=== PATIENT | male | born 1990 | race Caucasian/White ===

== ENCOUNTER 2024-05-19 21:12 | Emergency (ER) | payer BC ==
[2024-05-19 21:26] VITALS: TEMP 99.4; BMI 39.2
[2024-05-19] MEDS ORDERED: LIDOCAINE VISCOUS 2% ORAL/TOP 15 ML UNIT-DOSE CUP ONE (22:55)
[2024-05-19] MEDS ORDERED: ALBUTEROL SO4 2.5/IPRATROPIUM 0.5 INH SOL 3 ML VIAL.NEB. NEB ONE (22:55)
[2024-05-19] MEDS ORDERED: ACETAMINOPHEN 325 MG TABLET (FP) ONE (22:56)
[2024-05-19] MEDS: ALBUTEROL SO4 2.5/IPRATROPIUM 0.5 INH SOL 3 ML VIAL.NEB. NEB ONE (23:08)
[2024-05-19] MEDS: LIDOCAINE VISCOUS 2% ORAL/TOP 15 ML UNIT-DOSE CUP MM ONE (23:11)
[2024-05-19] MEDS: ACETAMINOPHEN 500 MG TABLET (FP) PO ONE (23:11)
[2024-05-19] MEDS ORDERED: chlordiazePOXIDE HCL 25 MG CAPSULE ONE (23:37)
[2024-05-19] MEDS: chlordiazePOXIDE HCL 25 MG CAPSULE PO ONE (23:44)
[2024-05-19] MEDS: SODIUM CHLORIDE 0.9% 500 ML INFUS.BAG IV ONE (23:44)
[2024-05-19 23:47] LABS: HEMATOCRIT 37.6 % (35.4-49); HEMOGLOBIN 12.8 GM/dL (11.7-16.9); MCH 28.2 pg (25.7-33.7); MEAN CELL VOLUME 83.1 fl (80-96); MEAN PLT VOLUME 7.5 fl (7.5-11.1); PLATELET COUNT 241 10^3/uL (134-434); RBC 4.53 M/mm3 (4.00-5.60); RDW 14.1 % (11.9-15.9); WHITE BLOOD COUNT 6.8 K/mm3 (4.0-10.0)
[2024-05-20 01:09] LABS: POTASSIUM 4.4 mmol/L (3.5-5.1)
[2024-05-20 01:11] LABS: CALCIUM 8.5 mg/dL (8.5-10.1)
[2024-05-20 01:12] LABS: ALBUMIN 3.4 g/dl (3.4-5.0); BLOOD UREA NITROGEN 15.8 mg/dL (7-18)
[2024-05-20 01:15] LABS: CREATININE 0.7 mg/dL (0.55-1.3)
[2024-05-20 01:17] LABS: BILIRUBIN,TOTAL 1.1 mg/dL (0.2-1); TOT PROT 7.3 g/dl (6.4-8.2)
[2024-05-20 01:39] VITALS: BP 125/86; RESP 16
[2024-05-20] MEDS ORDERED: DEXAMETHASONE SOD PHOSPHATE 10 MG/1 ML VIAL ONE (02:37)
[2024-05-20] MEDS: DEXAMETHASONE SOD PHOSPHATE 10 MG/1 ML VIAL IVPUSH ONE (02:44)
[2024-05-20 02:46] VITALS: PULSE 101
== END 2024-05-20 03:09 | disposition home or self-care (01) ==
LOC: JER 21:12
PROC: 3E033GC Introduction of Other Therapeutic Substance into Peripheral Vein, Percutaneous Approach (ICD-10-PCS; principal; 2024-05-19)
PROC: 3E0F7GC Introduction of Other Therapeutic Substance into Respiratory Tract, Via Natural or Artificial Opening (ICD-10-PCS; 2024-05-19)
DX: K13.70 Unspecified lesions of oral mucosa (principal); R06.2 Wheezing; Z04.9 Encounter for examination and observation for unspecified reason; Z20.822 Contact with and (suspected) exposure to COVID-19
CPT/HCPCS: 0241U-QW; 36415; 71045-TC-FY; 80053; 85027; 93005; 93010; 99285-25; J1100

== ENCOUNTER 2024-05-20 03:13 | Inpatient (IN) | payer BC ==
[2024-05-20 03:41] VITALS: BMI 39.5
[2024-05-20] MEDS ORDERED: ALBUTEROL SO4 2.5/IPRATROPIUM 0.5 INH SOL 3 ML VIAL.NEB. NEB PRN (04:10)
[2024-05-20] MEDS ORDERED: LIDOCAINE VISCOUS 2% ORAL/TOP 100 ML BOTTLE MM PRN (04:11)
[2024-05-20] MEDS ORDERED: MAG HYDROX/AL HYDROX/SIMETH 30 ML UNIT-DOSE CUP PO PRN (04:17)
[2024-05-20] MEDS ORDERED: POLYETHYLENE GLYCOL (HEALTHYLAX) 3350 17 GM PACKET PO PRN (04:17)
[2024-05-20] MEDS ORDERED: MAGNESIUM HYDROX 2400MG/30ML ORAL SUSPENSION 30 ML CUP PO PRN (04:17)
[2024-05-20] MEDS ORDERED: ACETAMINOPHEN 325 MG TABLET (FP) PO PRN (04:17)
[2024-05-20] MEDS ORDERED: NALOXONE (NARCAN) HCL 4 MG/0.1 ML SPRAY NS PRN (04:17)
[2024-05-20] MEDS ORDERED: NALOXONE HCL 0.4 MG/ML VIAL IM PRN (04:17)
[2024-05-20] MEDS ORDERED: NICOTINE POLACRILEX 4 MG GUM BUC PRN (04:17)
[2024-05-20] MEDS ORDERED: IBUPROFEN 400 MG TABLET (FP) PO PRN (04:17)
[2024-05-20] MEDS ORDERED: LOPERAMIDE HCL 2 MG CAPSULE PO PRN (04:17)
[2024-05-20] MEDS: PRENATAL VITAMINS W/ FOLIC ACID TABLET (FP) PO SCH (10:51)
[2024-05-20] MEDS: IBUPROFEN 600 MG TABLET (FP) PO PRN (18:59)
[2024-05-20] MEDS: hydrOXYzine PAMOATE 25 MG CAPSULE (FP) PO PRN (18:59)
[2024-05-20] MEDS: MELATONIN 5 MG TABLETS PO SCH (21:14)
[2024-05-20] MEDS: THIAMINE 100 MG TABLET PO SCH (21:14)
[2024-05-21] MEDS: BENZONATATE 200 MG CAPSULE PO PRN (01:32)
[2024-05-21] MEDS: guaiFENesin 600 MG TABLET.ER (FP) PO PRN (03:55)
[2024-05-21] MEDS: BENZOCAINE/MENTHOL (CHLORASEPTIC ) LOZENGE MM PRN (03:56)
[2024-05-21 09:33] VITALS: BP 128/71; PULSE 79; RESP 18; TEMP 97.5
[2024-05-21] MEDS: diazePAM 5 MG TABLET PO ONE (11:36)
[2024-05-21] MEDS: hydrOXYzine PAMOATE 50 MG CAPSULE (FP) PO ONE (11:36)
[2024-05-21 12:07] LABS: POTASSIUM 4.2 mmol/L (3.5-5.1)
[2024-05-21 12:08] LABS: ALBUMIN 3.2 g/dl (3.4-5.0); CALCIUM 8.8 mg/dL (8.5-10.1)
[2024-05-21 12:09] LABS: BLOOD UREA NITROGEN 19.4 mg/dL (7-18)
[2024-05-21 12:12] LABS: CREATININE 0.6 mg/dL (0.55-1.3)
[2024-05-21 12:13] LABS: BILIRUBIN,TOTAL 1.1 mg/dL (0.2-1)
[2024-05-21 16:17] LABS: SYPHILIS W/ RPR CONF NON-REACTIVE (NONREACTIVE)
[2024-05-23] MEDS ORDERED: DEXAMETHASONE 4 MG TABLET (FP) PO ONE (10:00)
== END 2024-05-21 13:38 | disposition home or self-care (01) | DRG 772 ==
LOC: YASAS 03:13 → Y3NR 04:14
PROVIDERS: ADMIT Allergy & Immunology; ATTEND Allergy & Immunology
PROC: HZ42ZZZ Group Counseling for Substance Abuse Treatment, Cognitive-Behavioral (ICD-10-PCS; principal; 2024-05-20)
DX: F18.20 Inhalant dependence, uncomplicated (principal); F10.10 Alcohol abuse, uncomplicated; F14.10 Cocaine abuse, uncomplicated; F13.10 Sedative, hypnotic or anxiolytic abuse, uncomplicated; F19.24 Other psychoactive substance dependence with psychoactive substance-induced mood disorder; J45.20 Mild intermittent asthma, uncomplicated; K13.79 Other lesions of oral mucosa; Z87.891 Personal history of nicotine dependence; Z88.0 Allergy status to penicillin
CPT/HCPCS: 36415; 80053; 80305; 80307; 86780; 86803; 93005; 93010

== ENCOUNTER 2024-05-21 13:50 | Inpatient (IN) | payer BC ==
[2024-05-21] MEDS ORDERED: NALOXONE HCL 0.4 MG/ML VIAL IM PRN (14:32)
[2024-05-21] MEDS ORDERED: MAG HYDROX/AL HYDROX/SIMETH 30 ML UNIT-DOSE CUP PO PRN (14:32)
[2024-05-21] MEDS ORDERED: ACETAMINOPHEN 325 MG TABLET (FP) PO PRN (14:32)
[2024-05-21] MEDS ORDERED: guaiFENesin 600 MG TABLET.ER (FP) PO PRN (14:32)
[2024-05-21] MEDS ORDERED: LOPERAMIDE HCL 2 MG CAPSULE PO PRN (14:32)
[2024-05-21] MEDS ORDERED: DICYCLOMINE HCL 10 MG CAPSULE PO PRN (14:32)
[2024-05-21] MEDS ORDERED: POLYETHYLENE GLYCOL (HEALTHYLAX) 3350 17 GM PACKET PO PRN (14:32)
[2024-05-21] MEDS ORDERED: BISMUTH SUBSALICYLATE 262 MG/15 ML BTL PO PRN (14:32)
[2024-05-21] MEDS ORDERED: ONDANSETRON *ODT* 4 MG TABLET SL PRN (14:32)
[2024-05-21] MEDS ORDERED: IBUPROFEN 400 MG TABLET (FP) PO PRN (14:32)
[2024-05-21] MEDS ORDERED: IBUPROFEN 600 MG TABLET (FP) PO PRN (14:32)
[2024-05-21] MEDS ORDERED: NALOXONE (NARCAN) HCL 4 MG/0.1 ML SPRAY NS PRN (14:32)
[2024-05-21] MEDS ORDERED: MAGNESIUM HYDROX 2400MG/30ML ORAL SUSPENSION 30 ML CUP PO PRN (14:32)
[2024-05-21] MEDS ORDERED: BENZOCAINE/MENTHOL (CHLORASEPTIC ) LOZENGE MM PRN (14:32)
[2024-05-21] MEDS: PRENATAL VITAMINS W/ FOLIC ACID TABLET (FP) PO SCH (14:48)
[2024-05-21 17:20] LABS: EPI CELLS 6 /uL (0-25.1); HYALINE CASTS 0 /uL (0-3.1); URINE APPEARANCE CLEAR; URINE BACTERIA 3 /uL (0-1359); URINE BILIRUBIN NEGATIVE (NEGATIVE); URINE COLOR YELLOW; URINE GLUCOSE (UA) NEGATIVE (NEGATIVE); URINE KETONE NEGATIVE (NEGATIVE); URINE LEUK ESTERASE NEGATIVE (NEGATIVE); URINE NITRITE NEGATIVE (NEGATIVE); URINE PROTEIN 1+ (NEGATIVE); URINE RBC 9 /uL (0-23.9); URINE WBC 8 /uL (0-25.8)
[2024-05-21] MEDS: diazePAM 5 MG TABLET PO SCH (17:30)
[2024-05-21] MEDS: hydrOXYzine PAMOATE 25 MG CAPSULE (FP) PO PRN (17:31)
[2024-05-21] MEDS: MELATONIN 5 MG TABLETS PO SCH (22:30)
[2024-05-21] MEDS: THIAMINE 100 MG TABLET PO SCH (22:30)
[2024-05-21] MEDS: BENZONATATE 200 MG CAPSULE PO PRN (22:32)
[2024-05-22] MEDS: METHOCARBAMOL 500 MG TABLET PO PRN (03:18)
[2024-05-22 11:39] LABS: CHLORIDE 106 mmol/L (98-107); POTASSIUM 3.6 mmol/L (3.5-5.1); SODIUM 139 mmol/L (136-145)
[2024-05-22 11:43] LABS: ANION GAP 6 mmol/L (4-13); CALCIUM 8.7 mg/dL (8.5-10.1); CO2 26 mmol/L (21-32); GLUCOSE,RANDOM 142 mg/dL (74-106)
[2024-05-22 11:46] LABS: CREATININE 0.8 mg/dL (0.55-1.3)
[2024-05-22 11:47] LABS: SGOT/AST 25 U/L (15-37); SGPT/ALT 60 U/L (13-61)
[2024-05-22 11:48] LABS: ALK PHOS 110 U/L (45-117); BILIRUBIN,TOTAL 0.7 mg/dL (0.2-1); TOT PROT 6.5 g/dl (6.4-8.2)
[2024-05-22 12:26] LABS: HEMATOCRIT 36.7 % (35.4-49); HEMOGLOBIN 12.8 GM/dL (11.7-16.9); MCH 28.9 pg (25.7-33.7); MCHC 34.9 g/dl (32.0-35.9); MEAN CELL VOLUME 82.7 fl (80-96); MEAN PLT VOLUME 8.5 fl (7.5-11.1); PLATELET COUNT 259 10^3/uL (134-434); RBC 4.44 M/mm3 (4.00-5.60); RDW 13.8 % (11.9-15.9); WHITE BLOOD COUNT 5.7 K/mm3 (4.0-10.0)
[2024-05-23] MEDS: diazePAM 5 MG TABLET PO SCH (05:42)
[2024-05-23] MEDS: DEXAMETHASONE 4 MG TABLET (FP) PO SCH (15:31)
[2024-05-23] MEDS: diazePAM 5 MG TABLET PO PRN (19:32)
[2024-05-24] MEDS: diazePAM 5 MG TABLET PO SCH (05:32)
[2024-05-24 07:42] VITALS: PULSE 80; RESP 16
[2024-05-24 09:11] VITALS: BP 135/89; TEMP 97.8
[2024-05-25] MEDS ORDERED: diazePAM 5 MG TABLET PO ONE (06:00)
== END 2024-05-24 11:38 | disposition home or self-care (01) | DRG 775 ==
LOC: YASAS 13:50 → Y3N 13:51
PROVIDERS: ADMIT Allergy & Immunology; ATTEND Surgery
PROC: HZ2ZZZZ Detoxification Services for Substance Abuse Treatment (ICD-10-PCS; principal; 2024-05-21)
DX: F10.230 Alcohol dependence with withdrawal, uncomplicated (principal); F13.20 Sedative, hypnotic or anxiolytic dependence, uncomplicated; F18.20 Inhalant dependence, uncomplicated; F19.24 Other psychoactive substance dependence with psychoactive substance-induced mood disorder; J45.909 Unspecified asthma, uncomplicated; K13.79 Other lesions of oral mucosa; Z87.820 Personal history of traumatic brain injury; Z88.0 Allergy status to penicillin
CPT/HCPCS: 36415; 80053; 80307; 81003; 85027; 86780